=== PATIENT | male | born 1960 | race Caucasian/White ===

== ENCOUNTER 2018-01-30 12:46 | Emergency (ER) | payer MEDICARE, MEDICAID ==
[~2018-01-30] VITALS: Ht 170.2 cm; Wt 78.9 kg
[2018-01-30 13:01] LABS: URINE BILIRUBIN NEGATIVE (Negative); URINE BLOOD TRACE (Negative); URINE CLARITY CLEAR; URINE COLOR YELLOW; URINE GLUCOSE-RANDOM NEGATIVE (Negative); URINE KETONES NEGATIVE (Negative); URINE LEUKOCYTES-REFLEX NEGATIVE (Negative); URINE NITRITE-REFLEX NEGATIVE (Negative); URINE PROTEIN NEGATIVE (Negative); URINE SPECIFIC GRAVITY <= 1.005 (1.005-1.030); URINE UROBILINOGEN 0.2 E.U./dl (0.2-1.0)
[2018-01-30] MEDS ORDERED: CELLCEPT 250 M250 MG PO (13:02)
[2018-01-30] MEDS ORDERED: MS CONTIN 60 MG60 M1 PO (13:02)
[2018-01-30] MEDS ORDERED: PREDNISONE 5 MG5 M1 PO (13:03)
[2018-01-30] MEDS ORDERED: ZOCOR40 MG PO (13:03)
[2018-01-30] MEDS ORDERED: ASPIR 8181 MG PO (13:03)
[2018-01-30] MEDS ORDERED: ALPRAZOLAM ER1 MG PO (13:03)
[2018-01-30] MEDS ORDERED: OMEPRAZOLE MAGN20 MG PO (13:04)
[2018-01-30] MEDS ORDERED: LOSARTAN-HCTZ1 EAC1 PO (13:04)
[2018-01-30] MEDS ORDERED: EFFER-K 10 MEQ10 ME1 PO (13:04)
[2018-01-30] MEDS ORDERED: PROAIR HFA8.5 GM PO (13:05)
[2018-01-30] MEDS ORDERED: PREDNISONE 20 M20 M1 PO (13:16)
[2018-01-30] MEDS ORDERED: VENTOLIN HFA 1818 GM INH (13:16)
[2018-01-30] MEDS ORDERED: ZPAK PO (13:16)
[2018-01-30 13:31] VITALS: BP 131/82
== END 2018-01-30 13:32 | disposition home or self-care (01) ==
LOC: M.ERS 12:46
PROVIDERS: Family Medicine
DX: J40 Bronchitis, not specified as acute or chronic (principal); R91.1 Solitary pulmonary nodule; J44.9 Chronic obstructive pulmonary disease, unspecified; E78.00 Pure hypercholesterolemia, unspecified; F17.210 Nicotine dependence, cigarettes, uncomplicated; Z88.8 Allergy status to other drugs, medicaments and biological substances

== ENCOUNTER 2018-02-16 19:57 | Emergency (ER) | payer MEDICARE, MEDICAID ==
[~2018-02-16] VITALS: Ht 167.6 cm; Wt 74.8 kg
[~2018-02-16 19:57] MED LIST: ALPRAZOLAM ER1 MG PO; ASPIR 8181 MG PO; CELLCEPT 250 M250 MG PO; EFFER-K 10 MEQ10 ME1 PO; LOSARTAN-HCTZ1 EAC1 PO; MS CONTIN 60 MG60 M1 PO; OMEPRAZOLE MAGN20 MG PO; PREDNISONE 20 M20 M1 PO; PREDNISONE 5 MG5 M1 PO; PROAIR HFA8.5 GM PO; VENTOLIN HFA 1818 GM INH; ZOCOR40 MG PO; ZPAK PO
[2018-02-16] MEDS ORDERED: CELLCEPT500 MG (20:11)
[2018-02-16 20:36] LABS: ABSOLUTE BASOPHILS 0.1 thou/uL (0.0-0.2); ABSOLUTE EOSINOPHILS 0.2 thou/uL (0.0-0.7); ABSOLUTE LYMPHOCYTES 2.4 thou/uL (0.8-5.3); ABSOLUTE MONOCYTES 0.6 thou/uL (0.0-1.2); ABSOLUTE NEUTROPHILS 4.7 thou/uL (1.6-8.1); BASOPHILS 0.9 %; EOSINOPHILS 1.9 %; HEMATOCRIT 46.7 % (42.0-52.0); HEMOGLOBIN 15.8 gm/dL (14.0-18.0); LYMPHOCYTES 29.8 %; MCH 31.1 pg (26.0-34.0); MCHC 33.9 g/dL (28.0-37.0); MCV 91.6 fL (80.0-100.0); MONOCYTES 8.2 %; MPV 7.3 fl. (7.2-11.1); NUCLEATED RBCS 0 /100WBC; PLATELET COUNT* 317 thou/uL (150-400); POLYS 59.2 %; RBC 5.09 mil/uL (4.50-6.00); RDW-CV 12.4 % (10.5-14.5); WBC 7.9 thou/uL (4.0-11.0)
[2018-02-16 20:44] LABS: ANION GAP 7 mmol/L (7-16); BUN 10 mg/dL (7-18); CALCIUM 9.2 mg/dL (8.5-10.1); CHLORIDE 101 mmol/L (98-107); CO2 33 mmol/L (21-32); CREATININE 0.9 mg/dL (0.6-1.3); GLUCOSE 104 mg/dL (70-99); POTASSIUM 3.3 mmol/L (3.5-5.1); SODIUM 141 mmol/L (136-145)
[2018-02-16 20:51] LABS: ALBUMIN 3.4 g/dL (3.4-5.0); ALKALINE PHOSPHATASE 82 U/L (46-116); SGOT 17 U/L (15-37); SGPT 20 U/L (30-65); TOTAL BILIRUBIN 0.5 mg/dL (<0.1-1.0); TOTAL PROTEIN 6.8 g/dL (6.4-8.2); TROPONIN-I LEVEL <0.06 ng/mL (<0.06)
[2018-02-16] MEDS ORDERED: LOSARTAN-HCTZ1 EAC1 PO (21:08)
[2018-02-16] MEDS ORDERED: MS CONTIN 60 MG60 M1 PO (21:08)
[2018-02-16 21:34] LABS: URINE BILIRUBIN NEGATIVE (Negative); URINE BLOOD 1+ (Negative); URINE CLARITY CLEAR; URINE COLOR YELLOW; URINE GLUCOSE-RANDOM NEGATIVE (Negative); URINE KETONES TRACE (Negative); URINE LEUKOCYTES-REFLEX NEGATIVE (Negative); URINE NITRITE-REFLEX NEGATIVE (Negative); URINE PROTEIN NEGATIVE (Negative); URINE SPECIFIC GRAVITY 1.015 (1.005-1.030); URINE UROBILINOGEN 0.2 E.U./dl (0.2-1.0)
[2018-02-16 21:43] LABS: BACTERIA-REFLEX None Seen /HPF (None Seen); CASTS None Seen /LPF (None Seen); CRYSTALS None Seen /LPF (None Seen); MUCUS 0-3 Light strn/LPF (None Seen); SQUAMOUS 0-3 Few /LPF (0-3); URINE RBC 0-2 Rare /HPF (0-2); URINE WBC-REFLEX None Seen /HPF (0-5)
[2018-02-16] MEDS ORDERED: REGLAN 10 MG TA10 MG PO (23:42)
[2018-02-16] MEDS ORDERED: MOTION RELIEF25 MG PO (23:42)
[2018-02-17 00:05] VITALS: BP 114/61
--- NOTE | 2018-02-17 12:33 | EKG ---
[place] [address] ELECTROCARDIOGRAM REPORT Name: VANCE ROSE Room: [facility] ([place], [place])Summer#: [id number] Admission: 02/16/18 Attend Phys: Discharge: 02/17/18 Date of : 58 Report #: [id number] THIS REPORT FOR: //name// [facility] ED Test Date: 2018-02-16 Test Time: 20:05:59 Pat Name: VANCE ROSE Department: Room: Gender: M Superintendent Drivers: SHEY : 1960 Requested By: Gena Felix Order Number: [id number] MD: Krystian Melvin Measurements Intervals [place] Rate: 91 P: -42 OR: 153 QRS: 269 QRSD: 93 T: 58 QT: 377 QTc: 464 Interpretive Statements Sinus rhythm Inferior infarct, old Baseline wander in lead(s) V6 No previous ECG available for comparison Electronically Signed On 02-17-2018 12:33:07 POND TENDER by Krystian Melvin [email or web address] <ELECTRONICALLY SIGNED> By: Krystian Melvin MD, [facility] 02/17/18 1233 04 04 Krystian Melvin MD, FACC /EPI
== END 2018-02-17 00:05 | disposition home or self-care (01) ==
LOC: M.ERS 19:57
PROVIDERS: Emergency Medicine
DX: R42 Dizziness and giddiness (principal); R51 Headache; J44.9 Chronic obstructive pulmonary disease, unspecified; E78.00 Pure hypercholesterolemia, unspecified; F17.210 Nicotine dependence, cigarettes, uncomplicated; Z88.8 Allergy status to other drugs, medicaments and biological substances

== ENCOUNTER 2018-04-13 00:19 | Emergency (ER) | payer MEDICARE, MEDICAID ==
[~2018-04-13] VITALS: Ht 170.2 cm; Wt 76.4 kg
[~2018-04-13 00:19] MED LIST changes: +CELLCEPT500 MG; +MOTION RELIEF25 MG PO; +REGLAN 10 MG TA10 MG PO
[2018-04-13 01:08] LABS: ABSOLUTE BASOPHILS 0.1 thou/uL (0.0-0.2); ABSOLUTE EOSINOPHILS 0.1 thou/uL (0.0-0.7); ABSOLUTE LYMPHOCYTES 2.6 thou/uL (0.8-5.3); ABSOLUTE MONOCYTES 0.7 thou/uL (0.0-1.2); ABSOLUTE NEUTROPHILS 5.7 thou/uL (1.6-8.1); EOSINOPHILS 1.3 %; HEMATOCRIT 46.5 % (42.0-52.0); LYMPHOCYTES 28.3 %; MCH 30.7 pg (26.0-34.0); MCHC 34.4 g/dL (28.0-37.0); MCV 89.4 fL (80.0-100.0); MONOCYTES 7.2 %; MPV 7.3 fl. (7.2-11.1); NUCLEATED RBCS 0 /100WBC; PLATELET COUNT* 284 thou/uL (150-400); POLYS 62.2 %; RDW-CV 12.4 % (10.5-14.5); WBC 9.2 thou/uL (4.0-11.0)
[2018-04-13 01:17] LABS: ANION GAP 6 mmol/L (7-16); BUN 13 mg/dL (7-18); CALCIUM 9.2 mg/dL (8.5-10.1); CHLORIDE 101 mmol/L (98-107); CO2 32 mmol/L (21-32); GLUCOSE 92 mg/dL (70-99); POTASSIUM 3.6 mmol/L (3.5-5.1); SODIUM 139 mmol/L (136-145)
[2018-04-13 01:18] LABS: PROTIME 10.2 Seconds (9.20-11.50)
[2018-04-13 01:27] LABS: ALBUMIN 3.5 g/dL (3.4-5.0); ALKALINE PHOSPHATASE 89 U/L (46-116); LIPASE 47 U/L (73-393); NT-PRO BRAIN NAT PEPTIDE 36 pg/mL (<300); SGOT 12 U/L (15-37); SGPT 16 U/L (30-65); TOTAL BILIRUBIN 0.6 mg/dL (<0.1-1.0); TOTAL PROTEIN 6.8 g/dL (6.4-8.2); TROPONIN-I LEVEL <0.06 ng/mL (<0.06)
[2018-04-13] MEDS ORDERED: REGLAN 10 MG TA10 MG PO (04:55)
[2018-04-13 05:10] VITALS: BP 95/53
--- NOTE | 2018-04-13 10:24 | EKG ---
[place] [address] ELECTROCARDIOGRAM REPORT Name: VANCE ROSE [id number]mission: 04/13/18 Attend Phys: Discharge: 04/13/18 Date of : 58 Report #: [id number] THIS REPORT FOR: //name// [facility] ED Test Date: 2018-04-13 Test Time: 01:19:15 Pat Name: VANCE ROSE Department: Room: Gender: M Educational Technologist: BARB : 1960 Requested By: Gena Felix Order Number: [id number] MD: Krystian Melvin Measurements Intervals [place] Rate: 78 P: 40 MA: 172 QRS: -83 QRSD: 91 T: 27 QT: 392 QTc: 447 Interpretive Statements Sinus rhythm Left axis deviation Low voltage, extremity leads Compared to ECG 02/16/2018 20:05:59 Left-axis deviation now present Low QRS voltage now present Myocardial infarct finding no longer present Electronically Signed On 04-13-2018 10:24:17 EVENT EXECUTIVE by Krystian Melvin [email or web address] <ELECTRONICALLY SIGNED> By: Krystian Melvin MD, FACC 04/13/18 1024 0119 0119 Krystina Melvin MD, [facility] /EPI
== END 2018-04-13 05:10 | disposition home or self-care (01) ==
LOC: M.ERS 00:19
PROVIDERS: Emergency Medicine
DX: R51 Headache (principal); R11.0 Nausea; R42 Dizziness and giddiness; J44.9 Chronic obstructive pulmonary disease, unspecified; E78.00 Pure hypercholesterolemia, unspecified; G89.29 Other chronic pain; M54.9 Dorsalgia, unspecified; F17.210 Nicotine dependence, cigarettes, uncomplicated; Z88.8 Allergy status to other drugs, medicaments and biological substances

== ENCOUNTER 2019-02-01 19:48 | Emergency (ER) | payer MEDICARE, MEDICAID ==
[~2019-02-01] VITALS: Ht 170.2 cm; Wt 81.7 kg
[2019-02-01] MEDS ORDERED: HYDROCODON-ACE1 EAC8 PO (20:03)
[2019-02-01] MEDS ORDERED: KLOR-CON 10 ER10 MEQ PO (20:04)
[2019-02-01 20:40] LABS: ABSOLUTE EOSINOPHILS 0.1 thou/uL (0.0-0.7); ABSOLUTE LYMPHOCYTES 0.9 thou/uL (0.8-5.3); ABSOLUTE MONOCYTES 0.7 thou/uL (0.0-1.2); ABSOLUTE NEUTROPHILS 5.6 thou/uL (1.6-8.1); BASOPHILS 0.5 %; EOSINOPHILS 1.3 %; HEMOGLOBIN 14.9 gm/dL (14.0-18.0); MCH 30.6 pg (26.0-34.0); MCHC 33.9 g/dL (28.0-37.0); MONOCYTES 9.3 %; MPV 7.6 fl. (7.2-11.1); NUCLEATED RBCS 0 /100WBC; PLATELET COUNT* 247 thou/uL (150-400); POLYS 76.9 %; RBC 4.89 mil/uL (4.50-6.00); RDW-CV 13.3 % (10.5-14.5); WBC 7.3 thou/uL (4.0-11.0)
[2019-02-01 21:01] LABS: INFLUENZA A ANTIGEN Negative (Negative); INFLUENZA B ANTIGEN Negative (Negative)
[2019-02-01 21:06] LABS: CALCIUM 8.8 mg/dL (8.5-10.1); POTASSIUM 3.4 mmol/L (3.5-5.1)
[2019-02-01 21:17] LABS: ALBUMIN 3.5 g/dL (3.4-5.0); TOTAL BILIRUBIN 0.3 mg/dL (<0.1-1.0); TOTAL PROTEIN 6.9 g/dL (6.4-8.2)
[2019-02-01] MEDS ORDERED: PREDNISONE 10 M10 MG PO (21:29)
[2019-02-01 21:41] VITALS: BP 115/73
--- NOTE | 2019-02-02 15:49 | EKG ---
[place] [address] ELECTROCARDIOGRAM REPORT Name: VANCE ROSE Room: [facility]#: [id number] Admission: 02/01/19 Attend Phys: Discharge: 02/01/19 Date of : 58 Report #: [id number] THIS REPORT FOR: //name// [facility] ED Test Date: 2019-02-01 Test Time: 20:05:19 Pat Name: VANCE ROSE Department: Room: Gender: Customer Account Specialist: : 1960 Requested By: Claudia Sanches Order Number: [id number] MD: Cullen Loyd Measurements Intervals [place] Rate: 83 P: -19 MT: 154 QRS: -77 QRSD: 94 T: 30 QT: 390 QTc: 459 Interpretive Statements Sinus rhythm Left anterior fascicular block Borderline low voltage, extremity leads Compared to ECG 04/13/2018 01:19:15 Left anterior fascicular block now present Electronically Signed On 02-02-2019 15:49:05 BIOLOGICAL TECHNICIAN by Cullen Loyd [email or web address] <ELECTRONICALLY SIGNED> By: Cullen Loyd MD, [facility] 02/02/19 1549 04 04 Cullen Loyd MD, FAC /EPI
== END 2019-02-01 21:42 | disposition home or self-care (01) ==
LOC: M.ERS 19:48
PROVIDERS: Nurse Practitioner Family
DX: J44.1 Chronic obstructive pulmonary disease with (acute) exacerbation (principal); E78.00 Pure hypercholesterolemia, unspecified; G89.29 Other chronic pain; F17.210 Nicotine dependence, cigarettes, uncomplicated; Z88.1 Allergy status to other antibiotic agents; Z88.8 Allergy status to other drugs, medicaments and biological substances

== ENCOUNTER 2019-02-03 12:59 | Emergency (ER) | payer MEDICARE, MEDICAID ==
[~2019-02-03] VITALS: Ht 170.2 cm; Wt 74.8 kg
[~2019-02-03 12:59] MED LIST changes: +HYDROCODON-ACE1 EAC8 PO; +KLOR-CON 10 ER10 MEQ PO; +PREDNISONE 10 M10 MG PO
[2019-02-03 13:54] LABS: HEMATOCRIT 45.5 % (42.0-52.0); HEMOGLOBIN 15.4 gm/dL (14.0-18.0); MCH 30.5 pg (26.0-34.0); MCHC 33.8 g/dL (28.0-37.0); MCV 90.2 fL (80.0-100.0); MPV 7.8 fl. (7.2-11.1); RBC 5.04 mil/uL (4.50-6.00); RDW-CV 13.1 % (10.5-14.5); WBC 8.3 thou/uL (4.0-11.0)
[2019-02-03 14:08] LABS: CALCIUM 9.2 mg/dL (8.5-10.1); POTASSIUM 3.8 mmol/L (3.5-5.1)
[2019-02-03 14:38] VITALS: BP 151/75
--- NOTE | 2019-02-04 12:56 | EKG ---
[place] [address] ELECTROCARDIOGRAM REPORT Name: VANCE ROSE Room: [facility]#: [id number] Admission: 02/03/19 Attend Phys: Discharge: 02/03/19 Date of : 58 Report #: [id number] THIS REPORT FOR: //name// [facility] ED Test Date: 2019-02-03 Test Time: 13:10:23 Pat Name: VANCE ROSE Department: Room: Gender: M Rrts: : 1960 Requested By: Fuad Torres Order Number: [id number] MD: Danny Blackmon Measurements Intervals [place] Rate: 71 P: -17 MA: 156 QRS: -40 QRSD: 97 T: -7 QT: 448 QTc: 487 Interpretive Statements Sinus rhythm Left axis deviation Low voltage, extremity leads Borderline prolonged QT interval Compared to ECG 02/01/2019 20:05:19 Left-axis deviation now present Left anterior fascicular block no longer present Electronically Signed On 02-04-2019 12:55:59 CLASS A TRUCK DRIVER by Danny Blackmon [email or web address] <ELECTRONICALLY SIGNED> By: Tejal Blackmon MD, [facility] 02/04/19 1255 1310 1310 Tejal Blackmon MD, [facility] /EPI
== END 2019-02-03 14:39 | disposition home or self-care (01) ==
LOC: M.ERS 12:59
PROVIDERS: Emergency Medicine Emergency Medical Services
DX: I10 Essential (primary) hypertension (principal); J44.9 Chronic obstructive pulmonary disease, unspecified; E78.00 Pure hypercholesterolemia, unspecified; G89.29 Other chronic pain; F17.210 Nicotine dependence, cigarettes, uncomplicated; Z88.8 Allergy status to other drugs, medicaments and biological substances

== ENCOUNTER → 2020-02-07 | Outpatient (CLI) | payer OTHER, MEDICAID ==
[2020-02-07 12:34] LABS: ABSOLUTE BASOPHILS 0.1 thou/uL (0.0-0.2); ABSOLUTE EOSINOPHILS 0.1 thou/uL (0.0-0.7); ABSOLUTE LYMPHOCYTES 3.9 thou/uL (0.8-5.3); ABSOLUTE MONOCYTES 0.7 thou/uL (0.0-1.2); ABSOLUTE NEUTROPHILS 4.8 thou/uL (1.6-8.1); BASOPHILS 0.6 %; EOSINOPHILS 1.4 %; HEMATOCRIT 45.5 % (42.0-52.0); HEMOGLOBIN 15.3 gm/dL (14.0-18.0); LYMPHOCYTES 40.5 %; MCH 29.8 pg (26.0-34.0); MCHC 33.7 g/dL (28.0-37.0); MCV 88.4 fL (80.0-100.0); MONOCYTES 7.6 %; MPV 6.7 fl. (7.2-11.1); NUCLEATED RBCS 0 /100WBC; PLATELET COUNT* 307 thou/uL (150-400); POLYS 49.9 %; RBC 5.15 mil/uL (4.50-6.00); RDW-CV 12.9 % (10.5-14.5); URINE BILIRUBIN NEGATIVE (Negative); URINE BLOOD TRACE (Negative); URINE CLARITY CLEAR; URINE COLOR YELLOW; URINE GLUCOSE-RANDOM NEGATIVE (Negative); URINE KETONES NEGATIVE (Negative); URINE LEUKOCYTES NEGATIVE (Negative); URINE NITRITE NEGATIVE (Negative); URINE PROTEIN NEGATIVE (Negative); URINE SPECIFIC GRAVITY 1.015 (1.005-1.030); URINE UROBILINOGEN 0.2 E.U./dl (0.2-1.0); WBC 9.7 thou/uL (4.0-11.0)
[2020-02-07 12:46] LABS: ALBUMIN 3.8 g/dL (3.4-5.0); CALCIUM 9.1 mg/dL (8.5-10.1); CREATININE 0.9 mg/dL (0.6-1.3); POTASSIUM 3.9 mmol/L (3.5-5.1); TOTAL BILIRUBIN 0.3 mg/dL (<0.1-1.0); TOTAL PROTEIN 6.9 g/dL (6.4-8.2)
== END ==
LOC: M.RAD 01-02 13:00
PROVIDERS: ATTEND Nurse Practitioner
DX: M51.17 Intervertebral disc disorders with radiculopathy, lumbosacral region (principal); M48.061 Spinal stenosis, lumbar region without neurogenic claudication; M25.78 Osteophyte, vertebrae; M47.22 Other spondylosis with radiculopathy, cervical region; M81.0 Age-related osteoporosis without current pathological fracture; G89.29 Other chronic pain; M31.30 Wegener's granulomatosis without renal involvement; I25.10 Atherosclerotic heart disease of native coronary artery without angina pectoris; J98.4 Other disorders of lung; M85.88 Other specified disorders of bone density and structure, other site

== ENCOUNTER → 2020-03-12 | Outpatient (CLI) | payer OTHER, MEDICAID | LOC: M.PC 08:27 | PROVIDERS: ATTEND Physical Medicine & Rehabilitation | DX: M51.36 Other intervertebral disc degeneration, lumbar region (principal); M48.061 Spinal stenosis, lumbar region without neurogenic claudication; M47.816 Spondylosis without myelopathy or radiculopathy, lumbar region; M50.30 Other cervical disc degeneration, unspecified cervical region; M48.02 Spinal stenosis, cervical region; M43.22 Fusion of spine, cervical region ==